=== PATIENT | male | born 1955 | race Caucasian/White ===

== ENCOUNTER 2022-08-13 12:54 | Observation (INO) | payer OTHER ==
[2022-08-13 13:36] LABS: #Basophils 0.1 10x3/uL (0.0-0.2); #Eosinphils 0.2 10x3/uL (0.0-0.5); #Monocytes 0.8 10x3/uL (0.0-1.1); #Neutrophils 6.8 10x3/uL (1.5-8.4); %Basophils 0.6 % (0.0-2.0); %Eosinophils 1.8 % (0.0-6.0); %Lymphocytes 23.8 % (18.0-47.0); %Monocytes 7.7 % (0.0-10.0); %Neutrophils 65.7 % (40.0-75.0); Mean Corpuscular Volume 85.8 fl (81.2-95.1); Mean Platelet Volume 9.3 fl (7.4-10.4); Platelet Count 170 10x3/uL (150-450); RBC Distribution Width 13.4 % (11.5-14.5); Red Blood Cell (RBC) Count 4.66 10x6/uL (4.32-5.72); White Blood Cell (WBC) Count 10.4 10x3/uL (3.5-10.5)
[2022-08-13 13:51] LABS: ALT (SGPT) 16 U/L (8-55); AST (SGOT) 17 U/L (5-34); Albumin 4.2 g/dL (3.4-4.8); Alkaline Phosphatase 78 U/L (40-110); Anion Gap 12 mmol/L (10-20); BUN (Urea Nitrogen) 16 mg/dL (8.4-25.7); Bilirubin, Total 0.8 mg/dL (0.2-1.2); Calc. Creatinine Clearance 0 mL/min (70-130); Calcium 9.3 mg/dL (7.8-10.44); Carbon Dioxide 26 mmol/L (23-31); Chloride 107 mmol/L (98-107); Estimated GFR 63; Globulin 2.6 g/dL (2.4-3.5); Glucose 102 mg/dL (80-115); Potassium 4.2 mmol/L (3.5-5.1); Protein, Total 6.8 g/dL (5.8-8.1); Sodium 141 mmol/L (136-145)
[2022-08-13] MEDS ORDERED: Nitroglycerin 2% Ointment 1 INCH/1 GM Packet ONE (14:13)
[2022-08-13] MEDS ORDERED: Aspirin Chewable 81 MG TAB ONE (14:13)
[2022-08-13 15:43] LABS: Troponin I Less than 0.010 ng/mL (< 0.028)
[2022-08-13] MEDS ORDERED: Acetaminophen 325 MG TAB PO PRN (16:01)
[2022-08-13 18:29] VITALS: BMI 25.6
[2022-08-13 20:29] LABS: Troponin I Less than 0.010 ng/mL (< 0.028)
[2022-08-14 04:38] LABS: #Basophils 0.1 10x3/uL (0.0-0.2); #Eosinphils 0.3 10x3/uL (0.0-0.5); #Neutrophils 5.7 10x3/uL (1.5-8.4); %Basophils 0.6 % (0.0-2.0); %Eosinophils 3.1 % (0.0-6.0); %Lymphocytes 26.9 % (18.0-47.0); %Monocytes 10.7 % (0.0-10.0); %Neutrophils 58.3 % (40.0-75.0); Hemoglobin 12.3 g/dL (13.5-17.5); Mean Corpuscular HGB CONC 34.7 g/dL (32.0-36.0); Mean Corpuscular Hemoglobin 29.9 pg (27.0-33.0); Mean Corpuscular Volume 85.9 fl (81.2-95.1); Mean Platelet Volume 9.3 fl (7.4-10.4); Platelet Count 164 10x3/uL (150-450); RBC Distribution Width 13.2 % (11.5-14.5); Red Blood Cell (RBC) Count 4.12 10x6/uL (4.32-5.72); White Blood Cell (WBC) Count 9.8 10x3/uL (3.5-10.5)
[2022-08-14 04:55] LABS: Chloride 110 mmol/L (98-107); Potassium 4.2 mmol/L (3.5-5.1); Sodium 144 mmol/L (136-145)
[2022-08-14 04:57] LABS: Anion Gap 12 mmol/L (10-20); BUN (Urea Nitrogen) 19 mg/dL (8.4-25.7); Calc. Creatinine Clearance 53 mL/min (70-130); Calcium 8.8 mg/dL (7.8-10.44); Carbon Dioxide 26 mmol/L (23-31); Cardiac Risk 2.7 (Less than 4.5); Cholesterol 83 mg/dl (< 200 Desired); Estimated GFR 55; Glucose 102 mg/dL (80-115); HDL Cholesterol 31 mg/dL (>60 Neg Risk); LDL Cholesterol, Calculated 38 mg/dL; Triglycerides 70 mg/dL (Less than 150)
[2022-08-14] MEDS ORDERED: Lisinopril 20 MG TAB PO SCH (09:00)
[2022-08-14] MEDS: Ezetimibe 10 MG TAB PO SCH (09:33)
[2022-08-14] MEDS: Clopidogrel Bisulfate 75 MG TAB PO SCH (09:33)
[2022-08-14] MEDS: Aspirin 81 mg Enteric Coated Tablet PO SCH (09:33)
[2022-08-14] MEDS ORDERED: Sodium Chloride 0.9% 1,000 ML IV SCH (10:15)
[2022-08-14] MEDS: Calcium Carbonate 500 MG ChewTAB PO PRN ×2 (14:23→20:24)
[2022-08-14] MEDS ORDERED: hydrALAZINE 20 MG/ML VIAL SLOW IVP PRN (16:58)
[2022-08-14] MEDS: Lisinopril 20 MG TAB PO SCH (20:17)
[2022-08-15 05:32] LABS: #Basophils 0.1 10x3/uL (0.0-0.2); #Eosinphils 0.4 10x3/uL (0.0-0.5); #Monocytes 0.9 10x3/uL (0.0-1.1); #Neutrophils 5.3 10x3/uL (1.5-8.4); %Basophils 0.8 % (0.0-2.0); %Eosinophils 4.5 % (0.0-6.0); %Lymphocytes 29.2 % (18.0-47.0); %Monocytes 9.5 % (0.0-10.0); %Neutrophils 55.4 % (40.0-75.0); Hemoglobin 13.3 g/dL (13.5-17.5); Mean Corpuscular HGB CONC 35.4 g/dL (32.0-36.0); Mean Corpuscular Hemoglobin 29.9 pg (27.0-33.0); Mean Corpuscular Volume 84.5 fl (81.2-95.1); Mean Platelet Volume 9.6 fl (7.4-10.4); Platelet Count 170 10x3/uL (150-450); RBC Distribution Width 13.2 % (11.5-14.5); Red Blood Cell (RBC) Count 4.45 10x6/uL (4.32-5.72); White Blood Cell (WBC) Count 9.7 10x3/uL (3.5-10.5)
[2022-08-15 05:34] LABS: Anion Gap 13 mmol/L (10-20); BUN (Urea Nitrogen) 16 mg/dL (8.4-25.7); Calc. Creatinine Clearance 65 mL/min (70-130); Calcium 9.3 mg/dL (7.8-10.44); Carbon Dioxide 22 mmol/L (23-31); Chloride 110 mmol/L (98-107); Estimated GFR 70; Glucose 105 mg/dL (80-115); Potassium 3.9 mmol/L (3.5-5.1); Sodium 141 mmol/L (136-145)
[2022-08-15] MEDS: Lisinopril 20 MG TAB PO SCH (07:49)
[2022-08-15] MEDS: Ezetimibe 10 MG TAB PO SCH (07:49)
[2022-08-15] MEDS: Aspirin 81 mg Enteric Coated Tablet PO SCH (07:49)
[2022-08-15] MEDS: Clopidogrel Bisulfate 75 MG TAB PO SCH (07:49)
[2022-08-15 10:50] VITALS: BP 119/76; TEMP 97.6
== END 2022-08-15 12:10 ==
LOC: CSHERS 12:54 → SUATTDRO 12:54 → EEVIPCON 17:56 → CSHTELE 17:56
PROVIDERS: ADMIT Family Medicine; ATTEND Hospitalist
DX: R55 Syncope and collapse (principal); R07.9 Chest pain, unspecified; I10 Essential (primary) hypertension; E78.5 Hyperlipidemia, unspecified; I25.2 Old myocardial infarction; K21.9 Gastro-esophageal reflux disease without esophagitis; Z79.82 Long term (current) use of aspirin; Z79.899 Other long term (current) drug therapy; Z79.02 Long term (current) use of antithrombotics/antiplatelets; Z95.1 Presence of aortocoronary bypass graft; M54.2 Cervicalgia
CPT/HCPCS: 70450; 71045; 72040; 80048 ×2; 80053; 80061; 83880; 84484 ×2; 85025 ×3; 85379; 93005; 93306; 93880; 96374; 99285; G0378 ×4; U0003; U0005; 36415; J0360; J7050